=== PATIENT | female | born 1965 | race Hispanic/Latino ===

== ENCOUNTER 2018-03-12 21:22 | Emergency (ER) | payer OTHER ==
[2018-03-12] MEDS ORDERED: PREDNISONE 20 MG TABLET ONE (22:10)
== END 2018-03-12 22:55 | disposition home or self-care (01) ==
LOC: EDH 21:22
DX: M79.671 Pain in right foot (principal); M79.89 Other specified soft tissue disorders; M79.672 Pain in left foot; I10 Essential (primary) hypertension; Z90.710 Acquired absence of both cervix and uterus
CPT/HCPCS: 73630

== ENCOUNTER → 2019-05-12 | Outpatient (CLI) | payer OTHER | END | disposition home or self-care (01) | LOC: RAH 12:46 | PROVIDERS: ATTEND Family Medicine | DX: M71.21 Synovial cyst of popliteal space [Baker], right knee (principal); M79.661 Pain in right lower leg | CPT/HCPCS: 93971 ==